=== PATIENT | male | born 1980 | race African-American/Black ===

== ENCOUNTER 2017-11-13 08:44 | Emergency (ER) | payer SELFPAY ==
[~2017-11-13] VITALS: Ht 185.4 cm; Wt 78.0 kg
[~2017-11-13 08:44] MED LIST: CYCL-36 PO; IBUP800 PO; PRED10PA PO
[2017-11-13 08:55] VITALS: BP 134/68; PULSE 80; RESP 15; TEMP 98.7; O2SAT 100
[2017-11-13] MEDS ORDERED: CEPH-460 PO (10:35)
[2017-11-13] MEDS ORDERED: BACT800T5 PO (10:35)
[2017-11-13] MEDS ORDERED: IBUP1TAB7 PO (10:35)
--- NOTE | 2017-11-13 10:35 | PD ---
HPI Chief Complaint: Skin Problem Time Seen by Provider: 10:32 Travel History International Travel<30 days: No Contact w/Intl Traveler<30days: No Traveled to known affect area: No History of Present Illness HPI 37-year-old male presents emergency department for evaluation of an insect bite to his right forearm. Patient states he is notices about 5 days ago however it is getting more red and warm to touch. He did not see the insect that bit him but felt it happened. Denies any fever chills. No chest pain or tightness. No difficulty breathing. No other symptoms to report. PFSH Past Medical History Medical History: Denies Significant Hx Social History Alcohol Use: Yes Tobacco Use: Yes Substance Use: No Allergies-Medications (Allergen,Severity, Reaction): Coded Allergies: No Known Allergies (Verified Adverse Reaction, Unknown, 11/13/17) Reported Meds & Prescriptions Reported Meds & Active Scripts Active Ibuprofen 800 Mg Tab 800 Mg PO Q8H PRN Keflex (Cephalexin) 500 Mg Capsule 500 Mg PO QID 5 Days Bactrim DS (Sulfamethoxazole-Trimethoprim) 800-160 Mg Tab 1 Tab PO BID Review of Systems Except as stated in HPI: all other systems reviewed are Neg Physical Exam Narrative GENERAL: Well-nourished, well-developed male patient, ambulatory no acute distress. SKIN: Focused skin assessment warm/dry. 3 cm area of induration on the right posterior medial forearm. There is no fluctuation. No drainage. There is surrounding erythema approximately 10 cm in diameter. HEAD: Normocephalic. EYES: No scleral icterus. No injection or drainage. NECK: Supple, trachea midline. No JVD or lymphadenopathy. CARDIOVASCULAR: Regular rate and rhythm without murmurs, gallops, or rubs. RESPIRATORY: Breath sounds equal bilaterally. No accessory muscle use. GASTROINTESTINAL: Abdomen soft, non-tender, nondistended. MUSCULOSKELETAL: No cyanosis, or edema. BACK: Nontender without obvious deformity. No CVA tenderness. Data Data Last Documented VS Vital Signs Date Time Temp Pulse Resp B/P (MAP) Pulse Ox O2 Delivery O2 Flow Rate FiO2 11/13/17 10:40 97.8 78 16 130/77 (94) 98 Orders Orders Tetanus/Diphtheria Tox Adult (Tetanus/Di (11/13/17 10:45) Ed Discharge Order (11/13/17 10:32) Wound Culture And Gram Stain (11/13/17 10:45) [facility] Medical Decision Making Medical Screen Exam Complete: Yes Emergency Medical Condition: Yes Medical Record Reviewed: Yes Differential Diagnosis Insect bite versus local reaction versus cellulitis versus folliculitis Narrative Course 37-year-old male presents emergency department for evaluation of what he believes is an insect bite to the right forearm. Physical exam is consistent with a localized cellulitis, possibly secondary to insect bite. Patient will be given oral antibiotics. I have counseled him on care. At this time there is nothing to drain but I have instructed him that it may develop into an abscess and may need to be drained. Patient verbalizes understanding and agrees to return immediately with any acute worsening symptoms. Diagnosis Primary Impression: Insect bite of forearm, infected Qualified Codes: S50.861A - Insect bite (nonvenomous) of right forearm, initial encounter; L08.9 - Local infection of the skin and subcutaneous tissue, unspecified; W57.XXXA - Bitten or stung by nonvenomous insect and other nonvenomous arthropods, initial encounter Referrals: Primary Care Physician Patient Instructions: Cellulitis (ED), General Instructions Additional Instructions: Do not squeeze the area warm compresses to the area Start antibiotics today and take until complete Return to ED with acute worsening of symptoms Med/Other Pt SpecificInfo: Prescription(s) given Scripts Ibuprofen (Ibuprofen) 800 Mg Tab 800 MG PO Q8H Y for Pain/Inflammation, #30 TAB 0 Refills Prov: Alisha Uriarte 11/13/17 Cephalexin (Keflex) 500 Mg Capsule 500 MG PO QID for Infection for 5 Days, CAP 0 Refills Prov: Alisha Uriarte 11/13/17 Sulfamethoxazole-Trimethoprim (Bactrim DS) 800-160 Mg Tab 1 TAB PO BID for Infection, #20 TAB 0 Refills Prov: Alisha Uriarte 11/13/17 Disposition: 01 DISCHARGE HOME Condition: Stable Alisha Uriarte Nov 13, 2017 10:35
[2017-11-13 10:40] VITALS: BP 130/77; TEMP 97.8
[2017-11-13] MEDS ORDERED: TETANUS/DIPHTHERIA TOXOID ADULT 0.5 ML VIAL IM ONE (10:45)
[2017-11-16] MEDS ORDERED: BACT800T5 PO (10:20)
== END 2017-11-13 10:40 | disposition home or self-care (01) ==
LOC: NEPD 08:44
DX: S50.861A Insect bite (nonvenomous) of right forearm, initial encounter (principal); L08.9 Local infection of the skin and subcutaneous tissue, unspecified; B95.62 Methicillin resistant Staphylococcus aureus infection as the cause of diseases classified elsewhere; W57.XXXA Bitten or stung by nonvenomous insect and other nonvenomous arthropods, initial encounter; Z88.2 Allergy status to sulfonamides; Z72.0 Tobacco use
CPT/HCPCS: 86403; 87070; 87186; 90471; 90714; 96372

== ENCOUNTER 2017-11-30 13:38 | Emergency (ER) | payer SELFPAY ==
[~2017-11-30 13:38] MED LIST changes: +BACT800T5 PO; +CEPH-460 PO; -CYCL-36 PO; +IBUP1TAB7 PO; -IBUP800 PO; -PRED10PA PO
[2017-11-30 13:53] VITALS: BP 117/73; PULSE 73; RESP 14; TEMP 98.8; O2SAT 98
[2017-11-30 16:05] LABS: AUTOMATED NEUTROPHIL # 5.8 TH/MM3 (1.8-7.7); BASOPHIL % 0.4 % (0.0-2.0); EOSINOPHIL % 0.1 % (0.0-4.0); HEMATOCRIT 43.6 % (39.0-51.0); HEMOGLOBIN 14.8 GM/DL (13.0-17.0); LYMPH % 18.6 % (9.0-44.0); LYMPHOCYTE # 1.5 TH/MM3 (1.0-4.8); MEAN CELL VOLUME 88.5 FL (80.0-100.0); MEAN CORPUSCULAR HEMOGLOBIN 30.1 PG (27.0-34.0); MEAN PLATELET VOLUME 8.7 FL (7.0-11.0); MONO % 11.6 % (0.0-8.0); NEUT % 69.3 % (16.0-70.0); PLATELET COUNT 228 TH/MM3 (150-450); RED BLOOD COUNT 4.93 MIL/MM3 (4.50-5.90); RED CELL DISTRIBUTION WIDTH 14.4 % (11.6-17.2); WHITE BLOOD COUNT 8.3 TH/MM3 (4.0-11.0)
[2017-11-30 16:19] LABS: BICARBONATE 25.4 MEQ/L (21.0-32.0); CALCIUM 8.6 MG/DL (8.5-10.1); CREATININE 1.28 MG/DL (0.60-1.30)
--- NOTE | 2017-11-30 21:36 | PD ---
HPI Chief Complaint: Fever Time Seen by Provider: 14:59 Travel History International Travel<30 days: No Contact w/Intl Traveler<30days: No History of Present Illness HPI 37-year-old male with PMH of abscess of the right upper extremity presents to the ED for evaluation of "fever since Wednesday." Patient states that he did not measure a temperature at home. He denies nausea, vomiting, limited range of motion of the extremity. He endorses compliance with antibiotics provided previous visit. PFSH Past Medical History Diminished Hearing: No Social History Alcohol Use: Yes Tobacco Use: Yes (10 cigarrettes per day) Substance Use: No Allergies-Medications (Allergen,Severity, Reaction): Coded Allergies: No Known Allergies (Verified Adverse Reaction, Unknown, 11/16/17) Reported Meds & Prescriptions Reported Meds & Active Scripts Active Bactrim DS (Sulfamethoxazole-Trimethoprim) 800-160 Mg Tab 1 Tab PO BID Ibuprofen 800 Mg Tab 800 Mg PO Q8H PRN Keflex (Cephalexin) 500 Mg Capsule 500 Mg PO QID 5 Days Review of Systems Except as stated in HPI: all other systems reviewed are Neg Physical Exam Narrative GENERAL: Well-nourished, well-developed -[place] male no acute distress. SKIN: Focused skin assessment warm/dry. SKIN: There is an indurated area in the right forearm which measures about 2 cm in diameter. It is open with no active draining. There is a zone of inflammation around it. HEAD: Normocephalic. EYES: No scleral icterus. No injection or drainage. RESPIRATORY: No accessory muscle use. MUSCULOSKELETAL: No cyanosis, or edema. Moves extremities spontaneously. BACK: No obvious deformity. Data Data Last Documented VS Vital Signs Date Time Temp Pulse Resp B/P (MAP) Pulse Ox O2 Delivery O2 Flow Rate FiO2 11/30/17 13:53 98.8 73 14 117/73 (88) 98 Orders Orders Complete Blood Count With Diff (11/30/17 13:55) Basic Metabolic Panel (Bmp) (11/30/17 13:55) Labs Laboratory Tests Test 11/30/17 15:08 White Blood Count 8.3 TH/MM3 Red Blood Count 4.93 MIL/MM3 Hemoglobin 14.8 GM/DL Hematocrit 43.6 % Mean Corpuscular Volume 88.5 FL Mean Corpuscular Hemoglobin 30.1 PG Mean Corpuscular Hemoglobin Concent 34.0 % Red Cell Distribution Width 14.4 % Platelet Count 228 TH/MM3 Mean Platelet Volume 8.7 FL Neutrophils (%) (Auto) 69.3 % Lymphocytes (%) (Auto) 18.6 % Monocytes (%) (Auto) 11.6 % Eosinophils (%) (Auto) 0.1 % Basophils (%) (Auto) 0.4 % Neutrophils # (Auto) 5.8 TH/MM3 Lymphocytes # (Auto) 1.5 TH/MM3 Monocytes # (Auto) 1.0 TH/MM3 Eosinophils # (Auto) 0.0 TH/MM3 Basophils # (Auto) 0.0 TH/MM3 CBC Comment DIFF FINAL Differential Comment Blood Urea Nitrogen 8 MG/DL Creatinine 1.28 MG/DL Random Glucose 91 MG/DL Calcium Level 8.6 MG/DL Sodium Level 135 MEQ/L Potassium Level 3.8 MEQ/L Chloride Level 106 MEQ/L Carbon Dioxide Level 25.4 MEQ/L Anion Gap 4 MEQ/L Estimat Glomerular Filtration Rate 77 ML/MIN MDM Medical Decision Making Medical Screen Exam Complete: Yes Emergency Medical Condition: Yes Differential Diagnosis Abscess versus I&D recheck versus cellulitis versus other Narrative Course 37-year-old male presents to the ED for evaluation of fevers 3 days. Patient has an abscess of the right forearm which was treated earlier this week. Afebrile on presentation. On exam there is an open abscess with no active draining, localized erythema. Otherwise unremarkable. Patient seen in triage. Awaiting med bed placement. Patient states that he does not want to wait for full evaluation. I explained the risks of leaving, up to and including . He acknowledged these risks, but still chose to leave AGAINST MEDICAL ADVICE. Diagnosis Primary Impression: Left against medical advice Jenise Fischer Nov 30, 2017 21:36
== END 2017-11-30 18:35 | disposition left against medical advice (07) ==
LOC: NETRI 13:38
DX: R50.9 Fever, unspecified (principal); F17.210 Nicotine dependence, cigarettes, uncomplicated; L02.413 Cutaneous abscess of right upper limb; Z53.21 Procedure and treatment not carried out due to patient leaving prior to being seen by health care provider
CPT/HCPCS: 80048; 85025; 99283

== ENCOUNTER 2018-01-03 15:46 | Emergency (ER) | payer SELFPAY ==
[~2018-01-03] VITALS: Ht 185.4 cm; Wt 78.0 kg
[2018-01-03 15:57] VITALS: BP 130/60; PULSE 79; RESP 18; TEMP 98.6
[2018-01-03 16:21] VITALS: O2SAT 99
[2018-01-03] MEDS ORDERED: IBUP1TAB7 PO (17:30)
[2018-01-03] MEDS ORDERED: BACT800T5 PO (17:30)
--- NOTE | 2018-01-03 17:30 | PD ---
HPI Chief Complaint: Skin Problem Time Seen by Provider: 16:57 Travel History International Travel<30 days: No Contact w/Intl Traveler<30days: No Traveled to known affect area: No History of Present Illness HPI 37-year-old male presents to the emergency department with complaint of an abscess to his anterior right thigh for the past 3-4 days. He thinks he got bit by a spider. Denies fever, vomiting. Reports history of "spider bites." Denies IV drug use. Says the area has already drained pus and is getting better , but not going away. Has been using antibiotic ointment, peroxide, and ibuprofen for symptom management. Rates pain 6/10. Up-to-date on tetanus vaccination. Pain is aggravated with palpation to the area. Pain decreased with ibuprofen. Denies significant past medical history. No known allergies. No primary care provider. Has no other medical complaints. No other modifying factors or associated signs and symptoms. PFSH Past Medical History Diminished Hearing: No Social History Alcohol Use: Yes Tobacco Use: Yes (10 cigarrettes per day) Substance Use: No Allergies-Medications (Allergen,Severity, Reaction): Coded Allergies: No Known Allergies (Verified Adverse Reaction, Unknown, 01/03/18) Reported Meds & Prescriptions Reported Meds & Active Scripts Active Ibuprofen 800 Mg Tab 800 Mg PO Q6HR PRN Bactrim DS (Sulfamethoxazole-Trimethoprim) 800-160 Mg Tab 1 Tab PO BID 10 Days Review of Systems Except as stated in HPI: all other systems reviewed are Neg Physical Exam Narrative GENERAL: Well-nourished, well-developed black male patient, in no acute distress ; afebrile, nontoxic-appearing SKIN: There is an indurated area to the anterior right thigh which measures about 1 cm in diameter.There is a scabbed area to the abscess without drainage or fluctuance; I was able to squeeze a minimal amount of purulent drainage from the scabbed area. There is no surrounding edema or erythema. No lymphangitis. HEAD: Atraumatic. Normocephalic. EYES: Pupils equal and round. No scleral icterus. No injection or drainage. ENT: Mucosa pink and moist. Airway patent. NECK: Trachea midline. CARDIOVASCULAR: Regular rate. RESPIRATORY: No accessory muscle use. GASTROINTESTINAL: Flat. MUSCULOSKELETAL: No obvious deformities. No clubbing. No cyanosis. No edema. NEUROLOGICAL: Awake and alert. Oriented 3. No obvious cranial nerve deficits. Motor grossly within normal limits. Normal speech. PSYCHIATRIC: Appropriate mood and affect; insight and judgment normal. Data Data Last Documented VS Vital Signs Date Time Temp Pulse Resp B/P (MAP) Pulse Ox O2 Delivery O2 Flow Rate FiO2 01/03/18 16:21 99 Room Air 01/03/18 15:57 98.6 79 18 130/60 (83) Orders Orders Ed Discharge Order (01/03/18 17:31) Wound Culture And Gram Stain (01/03/18 17:31) [facility] Medical Decision Making Medical Screen Exam Complete: Yes Emergency Medical Condition: Yes Medical Record Reviewed: Yes Differential Diagnosis Abscess, cellulitis, insect bite Narrative Course 37-year-old male with a nonfluctuant abscess to the anterior right thigh. There is a scabbed area to the abscess and the patient says it is already drained pus. I was able to squeeze a small amount of drainage from the area and obtained a wound culture. There is no surrounding erythema or edema. Instructed patient to continue warm compresses to the area. Ibuprofen and Bactrim prescribed for home. Instructed patient to follow up with primary care provider. Patient verbalizes understanding and agreement with treatment plan. Patient is medically cleared and stable for discharge. Discussed reasons to return to the emergency department. Patient agrees with treatment plan. The patients vital signs are stable and the patient is stable for outpatient follow- up and treatment. Patient discharged home, stable and in no acute distress. Diagnosis Primary Impression: Abscess of right thigh Referrals: [facility] Primary Care Physician Patient Instructions: Abscess (ED), Abscess Follow-up (ED), General Instructions Additional Instructions: Complete full course of antibiotics Warm compresses to the affected area Keep area clean and dry Ibuprofen or Tylenol as directed and as needed for pain and inflammation Follow-up with primary care provider Return to emergency department immediately with worsening of symptoms Med/Other Pt SpecificInfo: Prescription(s) given Scripts Ibuprofen (Ibuprofen) 800 Mg Tab 800 MG PO Q6HR Y for PAIN, #30 TAB 0 Refills Prov: Delia Basurto 01/03/18 Sulfamethoxazole-Trimethoprim (Bactrim DS) 800-160 Mg Tab 1 TAB PO BID for Infection for 10 Days, #20 TAB 0 Refills Prov: Delia Basurto 01/03/18 Disposition: 01 DISCHARGE HOME Condition: Stable Delia Basurto January 03, 2018 17:30
== END 2018-01-03 18:00 | disposition home or self-care (01) ==
LOC: NEPD 15:46
DX: L02.415 Cutaneous abscess of right lower limb (principal); F17.210 Nicotine dependence, cigarettes, uncomplicated
CPT/HCPCS: 86403; 87070; 87186; 87205; 99283